=== PATIENT | male | born 1990 | race Caucasian/White ===

== ENCOUNTER 2017-03-05 15:08 | Emergency (ER) | payer OTHER ==
--- NOTE | 2017-03-05 15:25 | PDOC ---
Rapid Medical Evaluation Time Seen by Provider: 03/05/17 15:23 Medical Evaluation: 03/05/17 15:24 I have performed a brief in-person evaluation of this patient. The patient presents with a chief complaint of: R flank pain w/ nausea today. H/ o renal stones w/ multiple lithotripsies Pertinent physical exam findings:Stable w/ benign abd w/ no CVAT I have ordered the following:labs/ua The patient will proceed to the ED for further evaluation. 03/05/17 15:26
[2017-03-05 15:28] VITALS: BP 146/96; PULSE 72; TEMP 98; BMI 30.7
[2017-03-05 15:52] LABS: BASO # 0.1 #; BASO % 0.7 % (0-2.0); EOS # 0.2 #; EOS % 1.7 % (0-4.5); LYMPH # 2.1; MCH 28.9 pg (25.7-33.7); MCHC 33.1 g/dl (32.0-35.9); MEAN CELL VOLUME 87.3 fl (80-96); MEAN PLT VOLUME 8.5 fl (7.5-11.1); MONO # 0.6 #; NEUT % 70.4 % (42.8-82.8); PLATELET COUNT 266 K/MM3 (134-434); RDW 13.1 % (11.9-15.9)
[2017-03-05 16:22] LABS: ALBUMIN 4.6 g/dl (3.4-5.0); ANION GAP 10 (8-16); CALCIUM 9.4 mg/dL (8.5-10.1); CO2 26 mmol/L (21-32); GLUCOSE,RANDOM 92 mg/dL (74-106); SGOT/AST 19 U/L (15-37)
[2017-03-05 16:25] LABS: ALK PHOS 86 U/L (45-117); BILIRUBIN,TOTAL 0.6 mg/dL (0.2-1.0); SGPT/ALT 38 U/L (12-78); TOT PROT 7.7 g/dl (6.4-8.2)
[2017-03-05 16:53] LABS: URINE APPEARANCE CLEAR; URINE BILIRUBIN NEGATIVE (NEGATIVE); URINE BLOOD 2+ (NEGATIVE); URINE COLOR STRAW; URINE GLUCOSE (UA) NEGATIVE (NEGATIVE); URINE KETONE NEGATIVE (NEGATIVE); URINE LEUK ESTERASE NEGATIVE (NEGATIVE); URINE NITRITE NEGATIVE (NEGATIVE); URINE PROTEIN NEGATIVE (NEGATIVE); URINE UROBILINOGEN NEGATIVE mg/dL (0.2-1.0)
[2017-03-05 17:13] LABS: URINE MUCUS RARE; URINE RBC 1 /hpf (0-3); URINE WBC 1 /hpf (3-5)
[2017-03-05 19:36] LABS: URINE LEUK ESTERASE Negative (NEGATIVE)
== END 2017-03-05 19:44 | disposition left against medical advice (07) ==
LOC: JER 15:08
DX: R10.31 Right lower quadrant pain (principal); Z87.442 Personal history of urinary calculi
CPT/HCPCS: 36415; 80053; 81003; 81015; 85025; 99281-25

== ENCOUNTER 2019-01-29 11:27 | Emergency (ER) | payer OTHER ==
[2019-01-29 11:44] VITALS: TEMP 98; BMI 34.8
[2019-01-29 11:57] LABS: EPITHELIAL CELLS FEW /hpf
--- NOTE | 2019-01-29 12:02 | PDOC ---
History of Present Illness - General Chief Complaint: Pain Stated Complaint: LOWER ABDOMEN PAIN RIGHT SIDE PAIN Time Seen by Provider: 01/29/19 11:33 History Source: Patient Exam Limitations: No Limitations - History of Present Illness Travel History: No Initial Comments: 01/29/19 12:03 28y M hx of kidney stones sp lithotrpsy, ptsd presenst with approx 1 week of suprapubic pain, initial onset was in the RUQ Approximately 10 days agobut has been radiating down to his R groin. Pain has been worsening, is 8/10, associated nausea Since last night. Patient denies any fever, chills, vomiting, chest pain, shortness of breath, back pain, Testicular pain, dysuria, penile discharge. Patient states this feels similar to previous kidney stones. He has not had a kidney stone for approximately 1 year. Past History - Past Medical History Allergies/Adverse Reactions: Allergies Allergy/AdvReac Type Severity Reaction Status Date / Time No Known Allergies Allergy Verified 01/29/19 11:31 Home Medications: Ambulatory Orders Vortioxetine Hydrobromide [Trintellix] 10 mg PO HS 01/29/19 traZODone HCL [Trazodone HCl] 50 mg PO HS 01/29/19 CVA: No COPD: No DVT: No Psychiatric Problems: Yes (PTSD) Other medical history: KIDNEY STONE - Immunization History Immunization Up to Date: Yes - Psycho Social/Smoking Cessation Hx Smoking History: Former smoker Have you smoked in the past 12 months: No If you are a former smoker, when did you quit?: 3 YEARS Information on smoking cessation initiated: No Hx Alcohol Use: No Drug/Substance Use Hx: Yes (MARIJUANA) Substance Use Type: None Review of Systems - Review of Systems Able to Perform ROS?: Yes Comments:: 01/29/19 12:50 Constitutional - no reported Fever, Chills, HEENT: no reported vision changes, sore throat Respiratory: no reported cough, sob, hemoptysis Cardiac: no reported chest pain, palpitations, light headedness, leg swelling Abd/GI: +R abd pain, +nausea, no reported vomiting, blood per rectum, melena, diarrhea : no reported dysuria, frequency, discharge Musculskelatal - no reported back pain, joint swelling skin - no reported bruising, erythema, rash neurological: no reported headache, numbness, focal weakness, tingling, ataxia, hematologic: no reported easy bruising, easy bleeding *Physical Exam - Vital Signs Last Vital Signs Temp Pulse Resp BP Pulse Ox 98 F 74 16 151/100 97 01/29/19 11:29 01/29/19 11:29 01/29/19 11:29 01/29/19 11:29 01/29/19 11:29 - Physical Exam Comments: 01/29/19 12:52 GENERAL: The patient is awake, alert, and fully oriented, Nontoxic - in no acute distress. HEAD: Normocephalic, atraumatic. EYES: extraocular movements intact, sclera anicteric, conjunctiva clear. ENT: Normal voice, Moist mucous membranes. NECK: Normal range of motion, supple LUNGS: Breath sounds equal, clear to auscultation bilaterally. No wheezes, no rhonchi, no rales. HEART: Regular rate and rhythm, normal S1 and S2 without murmur, rub or gallop. ABDOMEN: Soft, nontender, No guarding, no rebound. No CVA tenderness : Bilateral descended testicles, no tenderness on palpation To scrotum/ testicles, No hernias or masses noted EXTREMITIES: Normal range of motion, no edema. NEUROLOGICAL: No facial assymetry, Normal speech, PSYCH: Normal mood, normal affect. SKIN: Warm, Dry, normal turgor, ED Treatment Course - LABORATORY CBC & Chemistry Diagram: 01/29/19 12:10 01/29/19 12:10 - ADDITIONAL ORDERS Additional order review: Laboratory Results 01/29/19 11:45 Urine Color Yellow Urine Appearance Clear Urine pH 5.0 Urine Protein 1+ H Urine Glucose (UA) Negative Urine Ketones Trace Urine Blood 3+ H Urine Nitrite Negative Urine Bilirubin Negative Urine Urobilinogen 0.2 Ur Leukocyte Esterase Trace H Urine RBC >100 Urine WBC 10-20 Ur Transition Epith Cell Few Urine Bacteria Few Medical Decision Making - Medical Decision Making 01/29/19 12:52 Likely kidney stone, will obtain UA, will give Toradol, fluids, Zofran Will obtain kidney ultrasound To rule out hydro-will reassess 01/29/19 14:28 The patient's blood work was reviewed it is unremarkable The patient's ultrasound of the kidney Reveals multiple nonobstructing kidney stones Without any hydronephrosis no signs of uti Discharge - Discharge Information Problems reviewed: Yes Clinical Impression/Diagnosis: Kidney stone Condition: Improved Disposition: HOME - Admission No - Follow up/Referral Referrals: Luis Springer MD., [Staff Physician] - - Patient Discharge Instructions Patient Printed Discharge Instructions: DI for Kidney Stones Additional Instructions: Return to the emergency department immediately with ANY new, persistent or worsening symptoms Including fever, chills, or persistent pain or any other symptoms Take ibuprofen as needed for your pain. Follow-up with urology if you continue to have pain You MUST call and follow up with your doctor tomorrow for further evaluation of your symptoms. Results were discussed with you. Please make sure your doctor reviews the results of your emergency evaluation. Your Emergency Department visit is not complete without a follow up with your doctor. Print Language: TUNISIAN - Post Discharge Activity
[2019-01-29] MEDS ORDERED: ONDANSETRON 4 MG/2 ML VIAL IVPB ONE (12:04)
[2019-01-29] MEDS ORDERED: KETOROLAC TROMETHAMINE 30 MG/1 ML VIAL IVPUSH ONE (12:04)
[2019-01-29] MEDS ORDERED: SODIUM CHLORIDE 1,000 ML IV ONE (12:04)
[2019-01-29] MEDS ORDERED: KETOROLAC TROMETHAMINE 30 MG/1 ML VIAL ONE (12:20)
[2019-01-29] MEDS ORDERED: ONDANSETRON 4 MG/2 ML VIAL ONE (12:20)
[2019-01-29 12:47] LABS: ALBUMIN 4.6 g/dl (3.4-5.0); BILIRUBIN,TOTAL 0.7 mg/dl (0.2-1); CALCIUM 9.1 mg/dl (8.5-10); CREATININE 0.9 mg/dl (0.55-1.3); POTASSIUM 4.3 mmol/L (3.5-5.1); TOT PROT 7.5 g/dl (6.4-8.2)
[2019-01-29 12:48] LABS: BASO % 0.5 % (0-2.0); EOS % 1.9 % (0-4.5); HEMOGLOBIN 15.6 GM/dl (11.7-16.9); LYMPH % 21.8 % (8-40); MCH 29.9 pg (25.7-33.7); MCHC 33.9 g/dl (32.0-35.9); MEAN PLT VOLUME 8.4 fl (7.5-11.1); MONO % 5.5 % (3.8-10.2); NEUT % 70.3 % (42.8-82.8); PLATELET COUNT 303 K/MM3 (134-434); RBC 5.22 M/mm3 (4.00-5.60); RDW 12.3 % (11.9-15.9); WHITE BLOOD COUNT 8.5 K/mm3 (4.0-10.8)
[2019-01-29 14:48] VITALS: BP 126/77; PULSE 55
== END 2019-01-29 15:02 | disposition home or self-care (01) ==
LOC: FER 11:27
PROC: 3E0333Z Introduction of Anti-inflammatory into Peripheral Vein, Percutaneous Approach (ICD-10-PCS; principal; 2019-01-29)
PROC: 3E033GC Introduction of Other Therapeutic Substance into Peripheral Vein, Percutaneous Approach (ICD-10-PCS; 2019-01-29)
PROC: 3E0337Z Introduction of Electrolytic and Water Balance Substance into Peripheral Vein, Percutaneous Approach (ICD-10-PCS; 2019-01-29)
DX: N20.0 Calculus of kidney (principal); Z87.891 Personal history of nicotine dependence
CPT/HCPCS: 36415; 76775-TC; 80053; 81003; 81015; 85025; 87086; 96361; 96374; 96375; 99284-25; J7030

== ENCOUNTER 2020-01-24 09:55 | Emergency (ER) | payer OTHER | END 2020-01-24 10:19 | disposition home or self-care (01) | LOC: JVIRT 09:55 | DX: R05 Cough (principal); Z11.59 Encounter for screening for other viral diseases | CPT/HCPCS: C9803; Q3014-GT; U0003 ==